=== PATIENT | female | born 1995 | race Caucasian/White ===

== ENCOUNTER 2016-09-04 12:33 | Emergency (ER) | payer MEDICAID, OTHER ==
[~2016-09-04] VITALS: Ht 170.2 cm; Wt 80.5 kg
[2016-09-04 12:42] VITALS: Ht 170.2 cm; Wt 80.5 kg
[2016-09-04] MEDS ORDERED: VALA10004 PO (13:43)
[2016-09-04] MEDS ORDERED: PRED20TA PO (13:43)
[2016-09-04] MEDS ORDERED: CARB15DR LEFT EYE (13:44)
--- NOTE | 2016-09-04 14:11 | ERD ---
ER Documentation Chief Complaint Date/Time DATE: 09/04/16 TIME: 14:07 Chief Complaint left side facial droop x yesterday HPI Patient is a 21-year-old female presents to the emergency department for concerns of left-sided facial droop which started yesterday. Patient states initially she felt as if she "burned her tongue". Patient states she then noticed that she was having difficulty closing her left eye. Patient does report eye dryness. Patient states she feels as if her left-sided lips are numb similar to one one would receive a lidocaine injection at the dentist. Patient denies any URI symptoms. She denies any cough, rhinorrhea, fever, chills. States that over the last week she has recently become stressed due to financial changes. Patient denies any chest pain or shortness of breath, headache, blurry vision, nausea, vomiting or LOC. Patient is able to ambulate without any difficulty. Patient has no unilateral weakness. Patient denies any slurred speech or arm droop. No recent travel or outer activities. No sick contacts. ROS All systems reviewed and are negative except as per history of present illness. Medications Home Meds Active Scripts Carboxymethylcellulose Sodium* (Refresh Tears*) 15 Ml Drops, 2 DROP LEFT EYE QID , #1 EA Prov:TONY MORRIS PA-C 09/04/16 Valacyclovir HCl (Valtrex) 1,000 Mg Tablet, 1000 MG PO TID for 7 Days, TAB Prov:TONY MORRIS PA-C 09/04/16 Prednisone* (Prednisone*) 20 Mg Tab, 60 MG PO DAILY for 7 Days, TAB Prov:TONY MORRIS PA-C 09/04/16 Allergies Allergies: Coded Allergies: No Known Allergy (Unverified , 09/04/16) PMhx/Soc Hx Alcohol Use: No Hx Substance Use: No Hx Tobacco Use: No FmHx Family History: No diabetes Physical Exam Vitals Vital Signs Date Time Temp Pulse Resp B/P Pulse Ox O2 Delivery O2 Flow Rate FiO2 09/04/16 12:42 98.3 73 16 140/76 100 Physical Exam GENERAL: Well-developed, well-nourished female. Appears in no acute distress. Speaking in full sentences. HEAD: Normocephalic, atraumatic. EYES: Pupils are equally reactive bilaterally. EOMs grossly intact. No conjunctival erythema. ENT: Moist mucous membranes. No uvula deviation. No kissing tonsils. NECK: Supple. No meningismus. Normal range of motion of the neck. LUNG: Clear to auscultation bilaterally. No rhonchi, wheezing, rales or coarse breath sounds. HEART: Regular rate and rhythm. No murmurs, rubs or gallops. BACK: No midline tenderness. EXTREMITIES: Equal pulses bilaterally. No peripheral clubbing, cyanosis or edema. No unilateral leg swelling. NEUROLOGIC: Alert and oriented x3, cooperative. Mood and affect appropriate to situation. No forehead wrinkles noted to L forehead when asked to raise eyebrows. +Forehead affected. Left mouth angle droop affected when asked to smile. Incomplete closure of left eye noted. Normal speech. Motor exam: 5/5 strength in upper and lower extremities. Sensory exam: Sensation intact to light touch on all four extremities. Cerebellar function exam: No dysmetria on [id number] test. Steady gait. No pronator drift. Procedures/MDM MEDICAL DECISION MAKING: Patient is a 21 year old female who presents with left sided facial numbness x 1 day. Patient did report recent increase in stress at home due to financial troubles. Neuro exam revealed no forehead wrinkles noted to L forehead when asked to raise eyebrows. +Forehead affected. Left mouth angle droop affected when asked to smile. Incomplete closure of left eye noted. 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 No indication for blood work or imaging studies at this time. Patient was advised to take medication as prescribed, use eye patch and lubricating eye drops. Low suspicion for CVA, intracranial mass, midline shift, Lyme disease, MS, spinal cord injury, botulism, [place]illian [place] syndrome or drug overdose. PRESCRIPTIONS: Valacyclovir, Prednisone, Refresh eye drops DISCHARGE: At this time, patient is stable for discharge and outpatient management. I have instructed the patient to follow-up with his/her primary care physician in 1-2 days. I have discussed with the patient the possibility of needing to see a specialist for further workup and imaging studies if symptoms persist. I have instructed the patient to promptly return to the ER for any new or worsening symptoms including increased pain, fever, nausea, vomiting, weakness or LOC. The patient and/or family expressed understanding of and agreement with this plan. All questions were answered. Home care instructions were provided. Patients blood pressure was elevated (>120/80) but appears stable without evidence of hypertensive emergency, hypertensive urgency or end-organ failure. I had discussion with the patient about the risks of hypertension. I have advised the patient to follow up with his/her primary care physician for outpatient monitoring and treatment for hypertension in 2-3 days. I have instructed the patient to return to the ER for any new or worsening symptoms including chest pain, shortness of breath, headache, blurred vision, confusion, nausea, vomiting or LOC. Departure Diagnosis: Primary Impression: Norris's palsy Patient Instructions: Norris's Palsy Referrals: [facility] YOU HAVE RECEIVED A MEDICAL SCREENING EXAM AND THE RESULTS INDICATE THAT YOU DO NOT HAVE A CONDITION THAT REQUIRES URGENT TREATMENT IN THE EMERGENCY DEPARTMENT. FURTHER EVALUATION AND TREATMENT OF YOUR CONDITION CAN WAIT UNTIL YOU ARE SEEN IN YOUR DOCTORS OFFICE WITHIN THE NEXT 1-2 DAYS. IT IS YOUR RESPONSIBILITY TO MAKE AN APPOINTMENT FOR FOLOW-UP CARE. IF YOU HAVE A PRIMARY DOCTOR --you should call your primary doctor and schedule an appointment IF YOU DO NOT HAVE A PRIMARY DOCTOR YOU CAN CALL OUR PHYSICIAN REFERRAL HOTLINE AT IF YOU CAN NOT AFFORD TO SEE A PHYSICIAN YOU CAN CHOSE FROM THE FOLLOWING [facility] [address] [facility]. [facility] [address] [facility]. [facility] [address] [facility] [facility] [address] [facility] [facility] [address] [facility]. [facility]. [address] [facility]. [facility] YOU HAVE RECEIVED A MEDICAL SCREENING EXAM AND THE RESULTS INDICATE THAT YOU DO NOT HAVE A CONDITION THAT REQUIRES URGENT TREATMENT IN THE EMERGENCY DEPARTMENT. FURTHER EVALUATION AND TREATMENT OF YOUR CONDITION CAN WAIT UNTIL YOU ARE SEEN IN YOUR DOCTORS OFFICE WITHIN THE NEXT 1-2 DAYS. IT IS YOUR RESPONSIBILITY TO MAKE AN APPOINTMENT FOR FOLOW-UP CARE. IF YOU HAVE A PRIMARY DOCTOR --you should call your primary doctor and schedule and appointment IF YOU DO NOT HAVE A PRIMARY DOCTOR YOU CAN CALL OUR PHYSICIAN REFERRAL HOTLINE AT . IF YOU CAN NOT AFFORD TO SEE A PHYSICIAN YOU CAN CHOSE FROM THE FOLLOWING [facility]: [facility] [address] [place] [address] [facility] [address] [place] [address] [facility] [address] [place] [address] Additional Instructions: Use an eye patch at nighttime. Avoid itching/scratching eyes. Use lubricating drops. Call your primary care doctor TOMORROW for an appointment during the next 1-2 days.See the doctor sooner or return here if your condition worsens before your appointment time. TONY MORRIS PA-C Sep 04, 2016 14:11
== END 2016-09-04 15:02 | disposition home or self-care (01) ==
LOC: FTE 12:33
DX: G51.0 Bell's palsy (principal)
CPT/HCPCS: 99284

== ENCOUNTER 2017-02-15 21:07 | Emergency (ER) | END 2017-02-15 23:33 | disposition home or self-care (01) ==

== ENCOUNTER 2017-03-27 16:28 | Outpatient (CLI) | END 2017-03-27 18:10 | disposition home or self-care (01) ==